=== PATIENT | female | born 1935 | race Caucasian/White ===

== ENCOUNTER → 2018-08-23 14:19 | Outpatient (REF) | payer MEDICARE, OTHER, SELFPAY ==
[2018-08-23 15:52] LABS: Adenovirus F 40/41 Not Detected (Not Detect); Astrovirus Not Detected (Not Detect); Campylobacter Not Detected (Not Detect); Clostridium difficile toxin AB Not Detected (Not Detect); Cryptosporidium Not Detected (Not Detect); Cyclospora cayetanensis Not Detected (Not Detect); Entamoeba histolytica Not Detected (Not Detect); Enteroaggregative E.coli Not Detected (Not Detect); Enteropathogenic E.coli Not Detected (Not Detect); Enterotoxigenic E.coli It/st Not Detected (Not Detect); Giardia lamblia Not Detected (Not Detect); Norovirus GI/GII Not Detected (Not Detect); Plesiomonsa shigelloides Not Detected (Not Detect); Rotavirus A Not Detected (Not Detect); Salmonella Not Detected (Not Detect); Shiga-like toxin-prod E.coli Not Detected (Not Detect); Shigella/Enteroinvasive E.coli Not Detected (Not Detect); Vibrio Not Detected (Not Detect); Vibrio cholerae Not Detected (Not Detect); Yersinia enterocolitica Not Detected (Not Detect)
== END ==
LOC: LAB 14:19
PROVIDERS: Family Provider Internal Medicine; PCP Internal Medicine; Visit Provider Internal Medicine
DX: R19.7 Diarrhea, unspecified (principal)
CPT/HCPCS: 87507

== ENCOUNTER → 2018-08-24 15:18 | Outpatient (CLI) | payer MEDICARE, OTHER, SELFPAY ==
[2018-08-24 17:08] LABS: Add Manual Diff / Slide Review NO; Basophils Percent Auto 0.3 % (0-2); Eosinophils Percent Auto 1.5 % (2-4); Hematocrit 39.1 % (36-46); Hemoglobin 13.4 g/dL (12.0-16.0); Lymphocytes Percent Auto 34.3 % (25-40); Mean Corpuscular HGB Conc 34.2 % (30-36); Mean Corpuscular Hemoglobin 29.8 PG (26-34); Mean Corpuscular Volume 87.1 fL (80-100); Neutrophils Absolute Auto 3900 /uL (3000-5900); Neutrophils Percent Auto 52.9 % (50-75); Platelet Count 297 X10^3/uL (150-400); Red Blood Cell Count 4.49 X10^6/uL (4.0-5.2); Red Cell Distribution Width 13.7 % (11.6-14.8); White Blood Cell Count 7.4 X10^3/uL (4.5-11.0)
[2018-08-24 17:37] LABS: Alanine Aminotransferase 28 IU/L (9-52); Albumin Globulin Ratio 1.3 (1.0-2.8); Alkaline Phosphatase 90 U/L (38-126); Aspartate Aminotransferase 23 IU/L (14-36); Bilirubin Total 0.2 mg/dL (0.2-1.3); Blood Urea Nitrogen 18 mg/dL (7-17); Calcium 9.3 mg/dL (8.4-10.2); Carbon Dioxide 28 mmol/L (22-32); Chloride 104 mmol/L (98-107); Globulin 3.2 g/dL (1.7-4.1); Glucose 108 mg/dL (80-110); HEMOLYSIS < 15 (0-50); Potassium 4.1 mmol/L (3.4-5.1); Sodium 141 mmol/L (137-145); Total Protein 7.2 g/dL (6.3-8.2)
== END ==
PROVIDERS: PCP Internal Medicine; Visit Provider Internal Medicine
DX: F03.90 Unspecified dementia, unspecified severity, without behavioral disturbance, psychotic disturbance, mood disturbance, and anxiety (principal); R19.7 Diarrhea, unspecified
CPT/HCPCS: 36415; 80053; 84443; 85025

== ENCOUNTER → 2018-08-27 14:44 | Outpatient (CLI) | payer MEDICARE, OTHER, SELFPAY ==
[2018-08-27 16:50] LABS: Thyroid Stimulating Hormone 8.56 uIU/mL (0.47-4.68)
== END ==
PROVIDERS: Family Provider Internal Medicine; PCP Internal Medicine; Visit Provider Internal Medicine
DX: E03.9 Hypothyroidism, unspecified (principal)
CPT/HCPCS: 36415; 84443

== ENCOUNTER → 2018-09-24 15:51 | Outpatient (CLI) | payer MEDICARE, OTHER, SELFPAY ==
[2018-09-24 17:16] LABS: Thyroid Stimulating Hormone 0.09 uIU/mL (0.47-4.68)
== END ==
PROVIDERS: Family Provider Internal Medicine; PCP Internal Medicine; Visit Provider Nurse Practitioner Family
DX: E05.90 Thyrotoxicosis, unspecified without thyrotoxic crisis or storm (principal)
CPT/HCPCS: 36415; 84443

== ENCOUNTER → 2018-10-23 14:49 | Outpatient (CLI) | payer MEDICARE, OTHER, SELFPAY ==
[2018-10-23 17:17] LABS: Thyroid Stimulating Hormone 0.06 uIU/mL (0.47-4.68)
== END ==
PROVIDERS: Family Provider Internal Medicine; PCP Nurse Practitioner Family; Visit Provider Nurse Practitioner Family
DX: E03.9 Hypothyroidism, unspecified (principal)
CPT/HCPCS: 36415; 84443

== ENCOUNTER → 2019-01-23 11:42 | Outpatient (CLI) | payer MEDICARE, OTHER, SELFPAY ==
[2019-01-23 12:32] LABS: Add Manual Diff / Slide Review NO; Basophils Absolute Auto 0 /uL (0-100); Basophils Percent Auto 0.6 % (0-2); Eosinophils Absolute Auto 100 /uL (0-450); Eosinophils Percent Auto 1.1 % (2-4); Hematocrit 44.9 % (36-46); Hemoglobin 14.6 g/dL (12.0-16.0); Lymphocytes Absolute Auto 2300 /uL (1100-4500); Lymphocytes Percent Auto 33.7 % (25-40); Mean Corpuscular HGB Conc 32.6 % (30-36); Mean Corpuscular Hemoglobin 28.8 PG (26-34); Mean Corpuscular Volume 88.4 fL (80-100); Monocytes Absolute Auto 500 /uL (0-900); Monocytes Percent Auto 7.6 % (3-14); Neutrophils Absolute Auto 3900 /uL (1500-7000); Platelet Count 276 X10^3/uL (150-400); Red Blood Cell Count 5.08 X10^6/uL (4.0-5.2); Red Cell Distribution Width 14.6 % (11.6-14.8); White Blood Cell Count 6.9 X10^3/uL (4.5-11.0)
[2019-01-23 12:56] LABS: Blood Urea Nitrogen 20 mg/dL (7-17); Calcium 9.8 mg/dL (8.4-10.2); Carbon Dioxide 26 mmol/L (22-32); Chloride 104 mmol/L (98-107); Estimated Glomerular Filt Rate > 60.0 mL/min (>60); Glucose 96 mg/dL (80-110); HEMOLYSIS < 15 (0-50); Potassium 4.1 mmol/L (3.4-5.1); Sodium 142 mmol/L (137-145)
[2019-01-23 13:26] LABS: Thyroid Stimulating Hormone 0.06 uIU/mL (0.47-4.68)
== END ==
PROVIDERS: PCP Nurse Practitioner Family; Visit Provider Registered Nurse
DX: E03.9 Hypothyroidism, unspecified (principal); N17.9 Acute kidney failure, unspecified; Z91.81 History of falling
CPT/HCPCS: 36415; 80048; 84443; 85025

== ENCOUNTER → 2019-03-13 15:15 | Outpatient (CLI) | payer MEDICARE, OTHER, SELFPAY ==
[2019-03-13 16:04] LABS: Add Manual Diff / Slide Review NO; Basophils Absolute Auto 0 /uL (0-100); Basophils Percent Auto 0.4 % (0-2); Eosinophils Absolute Auto 100 /uL (0-450); Eosinophils Percent Auto 1.5 % (2-4); Hematocrit 41.4 % (36-46); Hemoglobin 13.5 g/dL (12.0-16.0); Lymphocytes Absolute Auto 2500 /uL (1100-4500); Lymphocytes Percent Auto 29.8 % (25-40); Mean Corpuscular HGB Conc 32.6 % (30-36); Mean Corpuscular Hemoglobin 28.6 PG (26-34); Mean Corpuscular Volume 87.8 fL (80-100); Monocytes Absolute Auto 800 /uL (0-900); Monocytes Percent Auto 9.8 % (3-14); Neutrophils Absolute Auto 4800 /uL (1500-7000); Neutrophils Percent Auto 58.5 % (50-75); Platelet Count 324 X10^3/uL (150-400); Red Blood Cell Count 4.72 X10^6/uL (4.0-5.2); Red Cell Distribution Width 14.5 % (11.6-14.8); White Blood Cell Count 8.3 X10^3/uL (4.5-11.0)
[2019-03-13 17:12] LABS: Alanine Aminotransferase 38 IU/L (9-52); Albumin 4.4 g/dL (3.5-5.0); Albumin Globulin Ratio 1.4 (1.0-2.8); Alkaline Phosphatase 152 U/L (38-126); Aspartate Aminotransferase 28 IU/L (14-36); BUN Creatinine Ratio 25.6 (6-22); Bilirubin Total 0.3 mg/dL (0.2-1.3); Blood Urea Nitrogen 23 mg/dL (7-17); Calcium 9.5 mg/dL (8.4-10.2); Carbon Dioxide 29 mmol/L (22-32); Chloride 103 mmol/L (98-107); Estimated Glomerular Filt Rate 59.8 mL/min (>60); Globulin 3.2 g/dL (1.7-4.1); Glucose 103 mg/dL (80-110); HEMOLYSIS < 15 (0-50); Potassium 4.3 mmol/L (3.4-5.1); Sodium 142 mmol/L (137-145); Total Protein 7.6 g/dL (6.3-8.2)
[2019-03-13 17:33] LABS: Thyroid Stimulating Hormone 0.14 uIU/mL (0.47-4.68)
[2019-03-13 18:00] LABS: Vitamin B12 286 pg/mL (239-931)
== END ==
PROVIDERS: PCP Nurse Practitioner Family; Visit Provider Registered Nurse
DX: R53.83 Other fatigue (principal); F03.90 Unspecified dementia, unspecified severity, without behavioral disturbance, psychotic disturbance, mood disturbance, and anxiety; E03.9 Hypothyroidism, unspecified
CPT/HCPCS: 36415; 80053; 82607; 84443; 85025

== ENCOUNTER → 2019-04-30 15:05 | Outpatient (CLI) | payer MEDICARE, OTHER, SELFPAY ==
[2019-04-30 16:42] LABS: Thyroid Stimulating Hormone 1.99 uIU/mL (0.47-4.68)
== END ==
PROVIDERS: PCP Nurse Practitioner Family; Visit Provider Registered Nurse
DX: E03.9 Hypothyroidism, unspecified (principal)
CPT/HCPCS: 36415; 84443

== ENCOUNTER 2019-10-29 13:02 | Emergency (ER) | payer MEDICARE, OTHER, SELFPAY ==
[2019-10-29 13:16] VITALS: BP 110/65; PULSE 68; RESP 18; TEMP 36.6; O2SAT 98
--- NOTE | 2019-10-29 13:27 | ED.FALL ---
HPI - Fall General Chief Complaint: Fall Stated Complaint: fell this morning Time Seen by Provider: 10/29/19 13:12 Source: RN notes reviewed Mode of arrival: Wheelchair Limitations: other (Dementia) History of Present Illness HPI Narrative: Patient is an 84-year-old female was sent over from the [facility] for concerns of injuries sustained from a fall this morning. Patient does have bruising around her left shoulder. Unsure as to how the individual fell. Patient is unable to provide any HPI review of systems given her history of dementia. Her medication list does not show any signs of anticoagulation. Related Data Home Medications Medication Instructions Recorded Confirmed acetaminophen 650 mg PO Q4HP PRN 10/29/19 10/29/19 alum-mag hydroxide-simeth [Antacid 30 ml PO Q4H PRN 10/29/19 10/29/19 Anti-Gas] aspirin 81 mg PO DAILY 10/29/19 10/29/19 bisacodyl 10 mg IL PRN PRN 10/29/19 10/29/19 bismuth subsalicylate [Bismatrol] 1,050 mg PO PRN PRN 10/29/19 10/29/19 carboxymethylcellulose sodium 2 drp OPHTHALMIC (EYE) QID PRN 10/29/19 10/29/19 [Lubricating Plus] ketoconazole 1 applic TOPICAL BID 10/29/19 10/29/19 levothyroxine 88 mcg PO DAILY 10/29/19 10/29/19 loperamide 2 mg PO Q4H PRN MDD 5 caps 10/29/19 10/29/19 magnesium hydroxide [Milk of 30 ml PO PRN PRN 10/29/19 10/29/19 Magnesia] memantine 5 mg PO QAM 10/29/19 10/29/19 paroxetine HCl 10 mg PO DAILY 10/29/19 10/29/19 sodium phosphates [Enema] 133 ml IL PRN PRN 10/29/19 10/29/19 Allergies Allergy/AdvReac Type Severity Reaction Status Date / Time No Known Allergies Allergy Uncoded 03/07/18 12:40 Review of Systems Review of Systems Narrative: Has bruising around the left shoulder. Patient is unable to provide any other review of systems given her history of dementia Patient History Medical History Alzheimer's dementia (Inactive) Hypertension (Inactive) Hypothyroidism (Inactive) Social History lives independently: No Exam Initial Vital Signs Initial Vital Signs: Vital Signs Temperature 97.8 F 10/29/19 13:16 Pulse Rate 68 10/29/19 13:16 Respiratory Rate 18 10/29/19 13:16 Blood Pressure 110/65 10/29/19 13:16 Pulse Oximetry 98 10/29/19 13:16 Const General: comfortable Orientation: awake Limitations: altered mental status HENMT Head: normal to inspection and normocephalic Ears: TM's normal bilaterally Eyes Pupils: PERRL Chest Chest: No crepitus Resp Effort & Inspection: normal respiratory effort Auscultation: clear to auscultation bilaterally Cardio Rate: regular rate Rhythm: regular rhythm Back/Spine/Pelvis Other: No gross deformities. Does not appear to be tender to palpation Skin Other: Has bruising on the superior anterior aspect of the left shoulder. Neuro Other: Has a history of dementia. Moves all 4 extremities spontaneously. Does not answer any questions specifically. Extrem Other: Patient does not seem to have any tenderness with movement of bilateral legs. No gross deformities noted in the lower extremities. Pelvis is stable. Does move bilateral upper extremities equally. Does not appear to have tenderness with movement of bilateral wrist her bilateral elbows. Has bruising around the left shoulder. No gross deformities. Procedures Orthopedic Splinting/Casting Injury #1: Side: left Upper Extremity Injury Location: clavicle Upper Extremity Immobilizer: sling/shoulder immobilizer Post splinting neuro exam: no change Post splinting vascular exam: no change Placed by: Nursing Course Orders Ordered: ED Orders 10/29/19 13:28 XR shoulder LT min 2V Stat Vital Signs Vital signs: Vital Signs - 8 hr 10/29/19 13:16 Temperature 97.8 F Pulse Rate 68 Respiratory Rate 18 Blood Pressure 110/65 Pulse Oximetry 98 MDM - Fall Imaging Data X-ray shoulder: Radiologist's impression: [address] [address] XRay Report Signed Patient: Mary Argueta LMR#: [id number] : 5Acct:[id number] Age/Sex: 84 / FDate of Service: 10/29/19 Loc: ED Accession Number: [id number] Procedure: XR shoulder LT min 2V Ordering Provider: Daniel Manzo D.O. PROCEDURE: XR SHOULDER LT MIN 2V INDICATIONS: fall with pain and discoloration TECHNIQUE: 2 views of the shoulder were acquired. COMPARISON: None. FINDINGS: Bones: Mildly displaced distal left clavicular fracture is present. Humeral head is high riding. Soft tissues: No suspicious soft tissue calcifications. Soft tissue edema is present overlying the clavicular fracture. IMPRESSION: 1. Mildly displaced distal left clavicular fracture. 2. High riding appearance of the humeral head, which can be indicative of rotator cuff pathology. Dictated by: Sheryl Bray M.D. on 10/29/2019 at 13:15 Approved by: Sheryl Bray M.D. on 10/29/2019 at 13:17 [facility] Narrative Medical decision making narrative: Patient has Alzheimer's and is unable to provide any HPI review of systems. Has bruising around the left shoulder. No other trauma was noted on the exam. Does have a distal clavicle fracture and potentially a rotator cuff injury. This does fit the bruising pattern the left shoulder. She was placed in a sling. Care instructions and return precautions were provided in her discharge paperwork for the group home. Discharge Plan Departure Patient Disposition: Home Clinical Impression: Clavicle fracture Qualifiers: Encounter type: initial encounter Clavicle location: lateral end Fracture type: closed Fracture alignment: displaced Laterality: left Qualified Code(s): S42.032A - Displaced fracture of lateral end of left clavicle, initial encounter for closed fracture Discharge Date/Time: 10/29/19 14:56 Instructions: DI for Clavicle Fracture-Adult Activity Restrictions/Additional Instructions: The sling as for her comfort. She can take it off to bathe and to dress. It is not 100% necessary so if it becomes an issue for her to keep it on she can take it off. She does have a distal clavicle fracture. I recommend that her primary doctor be notified of this. She can continue all of her medications as directed. Prescriptions: No Action paroxetine HCl 10 mg Tablet 10 mg PO DAILY RF: 0 loperamide 2 mg Capsule 2 mg PO Q4H MDD 5 caps PRN (Reason: Diarrhea) RF: 0 levothyroxine 88 mcg Tablet 88 mcg PO DAILY RF: 0 magnesium hydroxide [Milk of Magnesia] 400 mg/5 mL Suspension 30 ml PO PRN PRN (Reason: Constipation) RF: 0 bisacodyl 10 mg Suppository 10 mg IL PRN PRN (Reason: Constipation) RF: 0 Enema 19-7 gram/118 mL Enema 133 ml IL PRN PRN (Reason: Constipation) RF: 0 aspirin 81 mg Tablet,Chewable 81 mg PO DAILY RF: 0 alum-mag hydroxide-simeth [Antacid Anti-Gas] 200-200-20 mg/5 mL Suspension 30 ml PO Q4H PRN (Reason: upset stomach or heartburn) RF: 0 ketoconazole 2 % Cream 1 applic TOPICAL BID RF: 0 Bismatrol 525 mg/15 mL Suspension 1,050 mg PO PRN PRN (Reason: loose stool) RF: 0 Lubricating Plus 0.5 % Dropperette 2 drp ophthalmic (eye) QID PRN (Reason: Dry Eyes) RF: 0 memantine 5 mg Tablet 5 mg PO QAM RF: 0 acetaminophen 325 MG tablet 650 mg PO Q4HP PRN (Reason: headache,pain, or fever) RF: 0 Referrals: Concepcion Velasquez ARNP [Primary Care Provider] -
== END 2019-10-29 14:56 | disposition home or self-care (01) ==
PROVIDERS: Emergency Provider Emergency Medicine; PCP Nurse Practitioner Family
DX: S42.032A Displaced fracture of lateral end of left clavicle, initial encounter for closed fracture (principal); W19.XXXA Unspecified fall, initial encounter
CPT/HCPCS: 73030; 99282; 99283

== ENCOUNTER → 2020-03-28 23:22 | Outpatient (ROUT) | payer MEDICARE, OTHER, SELFPAY ==
[2020-03-28 23:28] LABS: Appearance Urine UA TURBID; Bilirubin Urine UA NEGATIVE (NEGATIVE); Color Urine UA YELLOW; Glucose Urine UA NEGATIVE (Negative); Ketones Urine UA TRACE (NEGATIVE); Leukocyte Esterase Urine UA TRACE (NEGATIVE); Nitrite Urine UA NEGATIVE (Negative); Occult Blood Urine UA 1+ (Negative); Protein Urine UA TRACE (Negative); Specific Gravity Urine UA >=1.030 (1.000-1.035); Urobilinogen Urine UA 0.2 E.U./dL (0.2)
[2020-03-28 23:33] LABS: Amorphous Sediment Urine 3+; Bacteria Urine Occasional (0-1); Culture Indicated Urine Specimen Cultured; RBC Urine 0-1/HPF (0-5/HPF); Squamous Epithelial Cell Urine 1-5 /HPF (0-5/HPF); WBC Urine 0-1/HPF (0-5/HPF)
== END ==
PROVIDERS: PCP Nurse Practitioner Family; Visit Provider Nurse Practitioner Family
DX: Z13.9 Encounter for screening, unspecified (principal)
CPT/HCPCS: 81001; 87086